=== PATIENT | female | born 1975 | race Caucasian/White ===

== ENCOUNTER → 2021-01-22 | Outpatient (CLI) | payer OTHER ==
--- NOTE | 2021-01-22 12:09 | REP ---
INDICATION: SCREENING MAMMO. COMPARISON: None TECHNIQUE: Digital screening mammography was carried out bilaterally in the CC and MLO projections using both 2D and 3D modalities. Today's examination is initial screening examination. By history, the patient has no complaints of a palpable breast abnormality or other significant breast complaints. FINDINGS: The breasts are symmetric in size and shape. Scattered dense heterogenous fibroglandular elements are seen bilaterally. In the right breast near 12 o'clock there is a potential subtle area of asymmetry. No other suspicious features are seen in either breast The [place] volumetric breast density pattern is b. IMPRESSION: BIRADS/ACR category 0 mammogram. Potential subtle area of asymmetry seen best on DBT imaging and with no priors for comparison. Diagnostic digital DBT spot compression views of the right breast in the CC and MLO projections recommended along with diagnostic ultrasonography if indicated. This patient's Tyrer-Cuzick lifetime breast cancer risk assessment score is 15.2%. This mammogram was interpreted with the aid of an FDA-approved computer-aided detection system. The patient states she had a clinical breast exam in December 2020. The patient letter being requested is M0. RECOMMENDATION: As above <Electronically signed by López Espinoza > 01/22/21 [id number]
== END ==
LOC: M WHC 10:24
PROVIDERS: ATTEND Family Medicine
DX: R92.2 Inconclusive mammogram (principal)

== ENCOUNTER → 2021-02-06 | Outpatient (CLI) | payer OTHER ==
--- NOTE | 2021-02-06 11:35 | REP ---
INDICATION: RIGHT BREAST ADD VIEWS. COMPARISON: 01/22/2021. TECHNIQUE: Multiple spot compression tomographic sequences performed. FINDINGS: There is no persistent architectural distortion or nodule on today's additional views. Scattered fibroglandular elements appear unremarkable. IMPRESSION: BIRADS/ACR category 1, negative. No persistent suspicious asymmetry, architectural distortion or nodule. This mammogram was interpreted with the aid of an FDA-approved computer-aided detection system. The patient letter being requested is M 1. RECOMMENDATION: Repeat screening mammography recommended 1 year (for women over 40). <Electronically signed by Abhay Grady > 02/06/21 1900
== END ==
LOC: M WHC 11:01
PROVIDERS: ATTEND Family Medicine
DX: Z12.31 Encounter for screening mammogram for malignant neoplasm of breast (principal)
CPT/HCPCS: 77065; G0279

== ENCOUNTER → 2022-07-04 | Outpatient (CLI) | payer OTHER | LOC: M WHC 09:05 | PROVIDERS: ATTEND Family Medicine | DX: Z12.31 Encounter for screening mammogram for malignant neoplasm of breast (principal) ==

== ENCOUNTER → 2024-05-24 | Outpatient (CLI) | payer OTHER | LOC: M WHC 08:18 | PROVIDERS: ATTEND Family Medicine | DX: N63.31 Unspecified lump in axillary tail of the right breast (principal); N63.10 Unspecified lump in the right breast, unspecified quadrant; N60.19 Diffuse cystic mastopathy of unspecified breast | CPT/HCPCS: 77066; G0279 ==